=== PATIENT | male | born 1970 | race Caucasian/White ===

== ENCOUNTER 2019-04-29 14:32 | Emergency (ER) | payer SELFPAY ==
[~2019-04-29] VITALS: Ht 175.3 cm; Wt 74.8 kg
[~2019-04-29 14:32] MED LIST: ALBU8.5H2 IH; CALC3.7S2 NS; CYCL10TA9 PO; DICY10CA26 PO; FLUT1DIS26 IH; IBP600T1 PO; LD5PT TOP; LORA-407 PO; NF-ESOM40C PO; NS IV 500 ML 500 ML ONE; OXYC-309 PO; TPR100T PO
[2019-04-29] MEDS ORDERED: LIDOCAINE/EPI 1%-1:100,000 (XYLOCAINE) 20ML INJ STA (14:44)
[2019-04-29] MEDS ORDERED: TETANUS,DIPTH,PERTUSS P/F (BOOSTRIX) 0.5 ML VIAL IM ONE (14:45)
--- NOTE | 2019-04-29 14:50 | ED Lower Extremity ---
General Chief Complaint: Lower Extremity Stated Complaint: RT LEG INJ Source: patient History of Present Illness Date Seen by Provider: Apr 29, 2019 Time Seen by Provider: 14:46 Initial Comments Patient presents with an injury to his right lower leg/colin. Patient reports he was working with some hoggs . A 300 pound hog, hit a gate that came down against his lower leg. Patient suffered an approximate 12 cm laceration over his lower colin. He also reports that he is unable to bear weight and feels like he possibly could've broken it. He does also have a small laceration/abrasion some swelling to his right forearm. He is able to move his right forearm without any difficulty. Patient reports his last tetanus was greater than 3 years ago. He denies any other injuries at this time.. Onset: just prior to arrival Allergies and Home Medications Allergies Coded Allergies: No Known Drug Allergies (Unverified , 05/01/11) Home Medications Albuterol 8.5 Gm Hfa.aer.ad, 8.5 GM IH Q6H PRN, (Reported) 2 PUFFS Calcitonin 3.7 Ml [place].pump, 1 SPRAY NS DAILY, (Reported) Cephalexin 500 Mg Capsule, 500 MG PO Q6H Prescribed by: DENIA DASILVA on 04/29/19 1648 Cyclobenzaprine Hcl 10 Mg Tablet, 1 EACH PO TID, (Reported) Dicyclomine Hcl 10 Mg Capsule, 1 EACH PO QID, (Reported) Esomeprazole Mag Trihydrate 40 Mg Capsule.dr, 1 CAP PO DAILY, (Reported) Fluticasone/Salmeterol 1 Disk Inhp, 1 PUFF IH BID PRN, (Reported) 1 PUFF Ibuprofen 600 Mg Tab, 600 MG PO Q8HR PRN, (Reported) Lidocaine 1 Ea Patch, 1 EA TOP DAILY, (Reported) ON FOR 12 HRS OFF FOR 12 HRS Lorazepam 2 Mg Tablet, 1 TAB PO Q6, (Reported) Oxycodone Hcl/Acetaminophen 1 Each Tablet, 1 EACH PO Q4, (Reported) Topiramate 100 Mg Tablet, 1 TAB PO TID, (Reported) Patient Home Medication List Home Medication List Reviewed: Yes Review of Systems Constitutional: see HPI EENTM: no symptoms reported Respiratory: no symptoms reported Cardiovascular: no symptoms reported Gastrointestinal: no symptoms reported Skin: see HPI Psychiatric/Neurological: No Symptoms Reported Past Rtspaop-Fnybua-Ukqkky Hx Past Med/Social Hx: Reviewed Nursing Past Med/Soc Hx Physical Exam Vital Signs Vital Signs - First Documented 04/29/19 04/29/19 14:38 17:02 Temp 98.1 Pulse 98 Resp 20 B/P (MAP) 161/96 (117) Pulse Ox 94 O2 Delivery Room Air Capillary Refill : Height, Weight, BMI Height: '" Weight: lbs. oz. kg; BMI Method: General Appearance: WD/WN, no apparent distress HEENT: PERRL/EOMI, normal ENT inspection Neck: non-tender, full range of motion Cardiovascular: normal peripheral pulses, regular rate, rhythm Hips: bilateral hip non-tender Legs: right leg bone tenderness, right leg other (12 cm laceration to the anterior colin) Ankles: bilateral ankle non-tender Feet: bilateral foot non-tender Neurologic/Tendon: normal sensation, normal motor functions Neurologic/Psychiatric: day care aide II-XII nml as tested, no motor/sensory deficits Skin: other (12 cm laceration to the right anterior colin and a small laceration/abrasion to the right upper forearm) Procedures/Interventions Wound Location: Lower Extremities Wound Length (cm): 12.5 Wound's Depth, Shape: irregular, contused tissue, sub Q Wound Explored: no foreign body removed Irrigated w/ Saline (ccs): 1000 Anesthesia: Lidocaine w/ Epi Volume Anesthetic (ccs): 6 Suture: Plain, Vicryl Suture Size: 3-0 Number of Sutures: 7 Sterile Dressing Applied?: Yes Progress pt tolerated well Progress/Results/Core Measures Results/Orders My Orders Orders - DENIA DASILVA DO Ns Iv 500 Ml (Sodium Chloride 0.9%) (04/29/19 14:31) Forearm 2 View Right (04/29/19 14:44) Tibia Fibula 2 View Right (04/29/19 14:44) Dipht,Pertuss(Acell),Tet Adult (Boostrix (04/29/19 14:45) Lidocaine/Epi 1% 1:100,000 (Xylocaine /E (04/29/19 14:44) Ed Iv/Invasive Line Start (04/29/19 14:52) Fentanyl Injection (Sublimaze Injection (04/29/19 15:00) Cefazolin 2 Gm/50 Ml Ns (Ancef 2 Gm/50 M (04/29/19 15:45) Lidocaine/Epi 2% 1:100,000 (Xylocaine/Ep (04/29/19 15:42) Morphine Injection (Morphine Injection (04/29/19 15:45) Morphine Injection (Morphine Injection (04/29/19 15:53) Lidocaine/Epi Mpf 2% 1:200,000 (Xylocain (04/29/19 16:00) Cefazolin Injection (Ancef Injection) (04/29/19 15:57) Ns (Ivpb) (Sodium Chloride 0.9% Ivpb Bag (04/29/19 15:57) Crutches (04/29/19 16:28) Medications Given in ED Current Medications Medications Dose Ordered Sig/Karlene Route Start Time Stop Time Status Last Admin Dose Admin Cefazolin Sodium 50 ml @ 140 mls/hr ONCE ONCE IV 04/29/19 15:45 04/29/19 16:06 DC 04/29/19 16:17 140 MLS/HR Diphtheria/ Tetanus/Acell Pertussis 0.5 ml ONCE ONCE IM 04/29/19 14:45 04/29/19 14:46 DC 04/29/19 15:03 0.5 ML Fentanyl Citrate 50 mcg ONCE ONCE IVP 04/29/19 15:00 04/29/19 15:01 DC 04/29/19 15:04 50 MCG Lidocaine/ Epinephrine 10 ml ONCE ONCE INJ 04/29/19 16:00 04/29/19 16:01 DC 04/29/19 15:59 10 ML Vital Signs/I&O 04/29/19 04/29/19 14:38 17:02 Temp 98.1 Pulse 98 72 Resp 20 16 B/P (MAP) 161/96 (117) 142/79 (100) Pulse Ox 94 O2 Delivery Room Air Progress Progress Note : Progress Note Patient continues to state he is unable to bear weight. There was a small fracture versus vascular line in the area of where he was injured. I will splint him since he is a little bear weight. We will have him follow-up with or so in 7-10 days for repeat x-ray. Patient will be discharged home with Keflex. He is to have the stitches out in 10-14 days. He is discharged home in stable condition. Diagnostic Imaging Diagonstic Imaging: Xray Reviewed: Reviewed/Discussed Departure Impression Primary Impression: Laceration of right lower leg without foreign body Qualified Codes: S81.811A - Laceration without foreign body, right lower leg, initial encounter Additional Impression: Closed fibular fracture Qualified Codes: S82.424A - Nondisplaced transverse fracture of shaft of right fibula, initial encounter for closed fracture Disposition: HOME, SELF-CARE Condition: Stable Departure-Patient Inst. Referrals: PATRICIA CHOPRA MD (PCP/Family) Primary Care Physician Patient Instructions: Laceration Repair With Stitches (DC) Add. Discharge Instructions: Keep laceration clean with warm soapy water. Then a layer of Vaseline as needed over the wound. Follow-up with or through her primary care physician for repeat x-ray in 7-10 days to determine if fracture versus vascular channel with severe contusion. Follow-up with primary care physician or at the ER in 10-14 days for suture removal All discharge instructions reviewed with patient and/or family. Voiced understanding. Scripts Cephalexin (Keflex) 500 Mg Capsule 500 MG PO Q6H for 7 Days, #28 CAP Prov: DENIA DASILVA DO 04/29/19 DENIA DASILVA DO Apr 29, 2019 14:50
[2019-04-29] MEDS ORDERED: fentaNYL INJECTION 100 MCG/2 ML AMP IVP ONE (15:00)
[2019-04-29] MEDS ORDERED: LIDOCAINE/EPI 2% 1:100,00 (XYLOCAINE) 20 ML VIAL ONE (15:42)
[2019-04-29] MEDS ORDERED: morphine INJ 10 MG/ML 1ML (SYR OR VIAL) ONE (15:45)
[2019-04-29] MEDS ORDERED: ceFAZolin 2 GM/50 ML NS 50 ML IV ONE (15:45)
[2019-04-29] MEDS ORDERED: morphine INJ 10 MG/ML 1ML (SYR OR VIAL) IVP STA (15:53)
[2019-04-29] MEDS ORDERED: NS (IVPB) 50 ML ONE (15:57)
[2019-04-29] MEDS ORDERED: ceFAZolin INJECTION 2,000 MG ONE (15:57)
[2019-04-29] MEDS ORDERED: LIDOCAINE/EPI 2% 1:200,00 (XYLOCAINE) 10 ML VIAL INJ ONE (16:00)
--- NOTE | 2019-04-29 16:01 | Diagnostic Imaging Report ---
INDICATION: Right lower leg pain. FINDINGS: Two views of the right tibia and fibula show no fracture or dislocation. IMPRESSION: Negative right tibia and fibula. Dictated by: Dictated on workstation # [id number]
--- NOTE | 2019-04-29 16:02 | Diagnostic Imaging Report ---
INDICATION: Right forearm Pain. FINDINGS: AP and lateral views of the right forearm show no fracture or dislocation. IMPRESSION: Negative right forearm. Dictated by: Dictated on workstation # [id number]
[2019-04-29] MEDS ORDERED: CEPH-507 PO (16:48)
[2019-04-29 17:02] VITALS: BP 142/79
--- NOTE | 2019-04-29 17:09 | NUR ---
patient denies need for crutches. States he has crutches at home.
--- OUTSIDE RECORDS SUMMARY | 2019-04-29 17:39 | XMS REPORT ---
Author Author PATRICIA CHOPRA Organization [facility] Address [address] [place] [address] Care Team Providers Care It Systems Engineer Name Role Phone PATRICIA CHOPRA Unavailable PROBLEMS Type Condition ICD9-CM Code JYY52-RA Code Onset Dates Condition Status SNOMED Code Problem Reflux esophagitis K21.0 0 869725614 Problem Migraine headache G43.909 0 76806594 Problem Rotator cuff impingement syndrome M75.40 14 Jan, 2011 0 867828244 Problem Tobacco use Z72.0 Oct, 0 273825069 Problem Pes anserinus tendinitis M76.899 09 Mar, 2010 0 36929649 Problem Acute and chronic cholecystitis K81.2 Apr, 0 003421626 Problem Headache(784.0) R51 06 Jun, 2012 0 74651586 Problem Closed fracture of greater tuberosity of humerus S42.253A 15 Jun, 2011 0 103503874 Problem Abdominal pain, generalized R10.84 Apr, 0 229160515 Problem IBS (irritable bowel syndrome) K58.9 Mar, 0 90500807 Problem Chronic obstructive pulmonary disease, unspecified COPD type J44.9 Active 84727737 Problem RLS (restless legs syndrome) G25.81 Active 07762254 Problem Rotator cuff tendinitis M75.80 Jan, 0 298606154 Problem Essential hypertension I10 Active 57468533 Problem Shoulder dislocation S43.006A 15 Jun, 2011 0 256338531 Problem Epilepsy G40.909 0 87884203 Problem Other specific arthropathies, not elsewhere classified, left shoulder M12.812 Active 535852018 Problem Other specific arthropathies, not elsewhere classified, right shoulder M12.811 Active [id number] Problem Irritable bowel syndrome without diarrhea K58.9 Active 37988301 Problem Anxiety F41.9 Active 91047420 ALLERGIES No Information ENCOUNTERS Encounter Location Date Diagnosis [facility] [address] [place] [address], [place] [address] Mar, Anxiety F41.9 [place] [address] [address] Mar, Anxiety F41.9 [place] [address] [address] Mar, Other specific arthropathies, not elsewhere classified, left shoulder M12.812 [facility] [address] [place] [address] Mar, Seizure R56.9 [facility] [address] [address] Mar, [facility] [address] [place] [address] Mar, Rotator cuff impingement syndrome M75.40 ; Chronic obstructive pulmonary disease, unspecified COPD type J44.9 ; Tobacco use Z72.0 ; Epilepsy G40.909 ; Essential hypertension I10 and RLS (restless legs syndrome) G25.81 [facility] [address] [address] February, Anxiety F41.9 [facility] [address] [place] [address] February, Other specific arthropathies, not elsewhere classified, left shoulder M12.812 [facility] [address] [place] [address] February, Anxiety F41.9 [facility] [address] [address] Jan, Anxiety F41.9 [facility] [address] [address] Jan, Other specific arthropathies, not elsewhere classified, left shoulder M12.812 and Chronic obstructive pulmonary disease, unspecified COPD type J44.9 [facility] [address] [place] [address] Jan, Anxiety F41.9 [facility] [address] [address] Jan, Anxiety F41.9 [facility] [address] [address] Dec, Seizure R56.[address] [address] Dec, Other specific arthropathies, not elsewhere classified, left shoulder M12.812 [facility] [place] [address] [address] Dec, [address] [address] Dec, Other specific arthropathies, not elsewhere classified, left shoulder M12.[address] [address] Dec, [facility] [address] [facility] [place] [address] Dec, Chronic obstructive pulmonary disease, unspecified COPD type J44.[address] [address] Dec, Chronic obstructive pulmonary disease, unspecified COPD type J44.9 ; Dislocation of right shoulder joint, subsequent encounter S43.004D ; Other specific arthropathies, not elsewhere classified, right shoulder M12.811 ; Other specific arthropathies, not elsewhere classified, left shoulder M12.812 ; Anxiety F41.9 ; Irritable bowel syndrome without diarrhea K58.9 and Seizure R56.9 [facility] [place] [address] [address] Nov, [facility] [address] [address] Nov, [facility] [address] [address] Sep, [facility] [id number] [place] [address] Sep, [facility] [address] [address] Apr, [facility] [id number] [place] [address] Jun, [facility] [address] [facility] [id number] [place] [id number] Jul, Dental examination Z01.20 and Dental caries K02.9 [facility] [address] [facility] [id number] [place] [id number] February, Dental examination V72.2 [facility] [address] [facility] [id number] [address] Apr, IMMUNIZATIONS No Known Immunizations SOCIAL HISTORY Never Assessed REASON FOR VISIT medication refill PLAN OF CARE VITAL SIGNS MEDICATIONS Medication Instructions Dosage Frequency Start Date End Date Duration Status Ondansetron 8 MG Orally 3 times a day 1 tablet 8h Dec, 14 days Active RESULTS No Results PROCEDURES No Known procedures INSTRUCTIONS MEDICATIONS ADMINISTERED No Known Medications MEDICAL (GENERAL) HISTORY Type Description Date Medical History Bronchitis Medical History Seizures Medical History Surgery requiring rods pins and screws Medical History Back trouble Surgical History Appendectomy Surgical History Lap Nayana Surgical History Kyphoplasty Surgical History Left Shoulder fracture Hospitalization History Bilateral Shoulder dislocation and fracture
--- OUTSIDE RECORDS SUMMARY | 2019-04-29 17:39 | XMS REPORT ---
Author Author ALETHA ARRINGTON Organization [employer] Address Unknown Phone Unavailable Care Team Providers Care Manager Product Support Name Role Phone ALETHA ARRINGTON CP Unavailable Allergies, Adverse Reactions, Alerts Substance Reaction Event Type N.K.D.A. Info Not Available Non Drug Allergy Problems Problem Type Condition Code Onset Dates Condition Status Assessment Dental examination Z01.20 Active Medications Medication Code System Code Instructions Start Date End Date Status Dosage Levsin [facility] [address]-56 not defined Advair Diskus [facility] [address]-32 not defined Flexeril NDC 0 not defined Topamax [facility] [address]-07 not defined ProAir HFA [facility] [address]-09 not defined morphine NDC 0 not defined Procedures Procedure Coding System Code Date INTRAORL-PERIAPICAL 1 FILM 18630 CPT-4 D0220 Jul 21, 2015 BITEWING - SINGLE FILM CPT-4 D0270 Jul 21, 2015 LTD ORAL EVALUATION - PROBLEM FOCUS CPT-4 D0140 Jul 21, 2015 EXTRAC ERUPTED TOOTH/EXPOSED ROOT CPT-4 D7140 Jul 21, 2015 EXTRAC ERUPTED TOOTH/EXPOSED ROOT CPT-4 D7140 Jul 21, 2015 Vital Signs Date/Time: Jul 21, 2015 Blood Pressure Diastolic 87 mmHg Blood Pressure Systolic 144 mmHg Results No Known Results Summary Purpose [employer] Submission
--- OUTSIDE RECORDS SUMMARY | 2019-04-29 17:39 | XMS REPORT ---
Author Author PATRICIA CHOPRA Organization [facility] Address [address] [place] [address] Care Team Providers Care Hotel Front Desk Clerk Name Role Phone PATRICIA CHOPRA Unavailable PROBLEMS Type Condition ICD9-CM Code SYN70-XX Code Onset Dates Condition Status SNOMED Code Problem Migraine headache 346.90 0 31920697 Problem Epilepsy 345.90 0 16750330 Problem Tobacco use 305.1 Oct, 0 740876473 Problem Anxiety 300.00 Mar, 0 70153392 Problem IBS (irritable bowel syndrome) 564.1 Mar, 0 81832958 Problem Abdominal pain, generalized 789.07 Apr, 0 460363869 Problem Closed fracture of greater tuberosity of humerus 812.03 15 Jun, 2011 0 636975450 Problem Shoulder dislocation S43.006A 15 Jun, 2011 0 603146155 Problem Headache(784.0) R51 06 Jun, 2012 0 13606067 Problem Rotator cuff impingement syndrome 726.10 Jan, 0 625011828 Problem Shoulder dislocation 831.00 15 Jun, 2011 0 479352165 Problem Migraine headache G43.909 0 04833937 Problem Epilepsy G40.909 0 61242226 Problem Rotator cuff impingement syndrome M75.40 Jan, 0 820395492 Problem Reflux esophagitis K21.0 0 942106707 Problem Pes anserinus tendinitis 726.61 09 Mar, 2010 0 05784671 Problem Acute and chronic cholecystitis K81.2 Apr, 0 205176670 Problem Closed fracture of greater tuberosity of humerus S42.253A 15 Jun, 2011 0 706773678 Problem Pes anserinus tendinitis M76.899 09 Mar, 2010 0 15840378 Problem Rotator cuff tendinitis 726.10 14 Jan, 2011 0 236184117 Problem Rotator cuff tendinitis M75.80 Jan, 0 813055109 Problem Abdominal pain, generalized R10.84 Apr, 0 451047130 Problem Other specific arthropathies, not elsewhere classified, right shoulder M12.811 Active 68039855201361944 Problem Reflux esophagitis 530.11 0 751485519 Problem Irritable bowel syndrome without diarrhea K58.9 Active 66137248 Problem Acute and chronic cholecystitis 575.12 Apr, 0 551707374 Problem Tobacco use Z72.0 Oct, 0 276354406 Problem IBS (irritable bowel syndrome) K58.9 Mar, 0 44343695 Problem Chronic obstructive pulmonary disease, unspecified COPD type J44.9 Active 09676712 Problem Anxiety F41.9 Active 72620240 Problem Other specific arthropathies, not elsewhere classified, left shoulder M12.812 Active 520927201 ALLERGIES No Known Allergies ENCOUNTERS Encounter Location Date Diagnosis [address] [address] Mar, [facility] [address] [place] [address] Jan, Anxiety F41.[address] [address] Jan, Anxiety F41.[address] [address] Dec, Seizure R56.[address] [address] Dec, Other specific arthropathies, not elsewhere classified, left shoulder M12.[address] [address] Dec, [address] [address] Dec, Other specific arthropathies, not elsewhere classified, left shoulder M12.[address] [address] Dec, [facility] [address] [place] [address] Dec, Chronic obstructive pulmonary disease, unspecified COPD type J44.[address] [address] Dec, Chronic obstructive pulmonary disease, unspecified COPD type J44.9 ; Dislocation of right shoulder joint, subsequent encounter S43.004D ; Other specific arthropathies, not elsewhere classified, right shoulder M12.811 ; Other specific arthropathies, not elsewhere classified, left shoulder M12.812 ; Anxiety F41.9 ; Irritable bowel syndrome without diarrhea K58.9 and Seizure R56.9 [facility] [address] [place] [address] Nov, [facility] [id number] [place] [address] Nov, [facility] [id number] [place] [address] Sep, [facility] [id number] [place] [address] Sep, [facility] [id number] [place] [address] Apr, [facility] [id number] [place] [address] Jun, [facility] [id number] [place] [id number] Jul, Dental examination Z01.20 and Dental caries K02.9 [facility] [id number] [place] [id number] February, Dental examination V72.2 [facility] [id number] [place] [address] Apr, IMMUNIZATIONS No Known Immunizations SOCIAL HISTORY Never Assessed REASON FOR VISIT Blood Pressure PLAN OF CARE Activity Details Follow Up 3 Months,prn Reason: VITAL SIGNS Height 5ft 9in in 2018-12-17 Weight 172lb lbs 2018-12-17 BMI 25.4 kg/m2 2018-12-17 Blood pressure systolic 116 mmHg 2018-12-17 Blood pressure diastolic 80 mmHg 2018-12-17 MEDICATIONS Medication Instructions Dosage Frequency Start Date End Date Duration Status Morphine Sulfate ER 60 MG Orally 2 times a day 1 capsule 12h 25 Feb, 2019 Active Xanax 0.25 MG Orally Twice a day 1 tablet 12h Dec, 28 days Active Advair Diskus 250-50 MCG/DOSE by inhalation route 2 times a day 1 puff 12h Active Lisinopril 5 MG Orally Once a day 1 tablet 24h 18 Nov, 2018 Active ProAir HFA Active Levsin Active Flexeril Active Topamax 100 MG by oral route 3 times a day 1 tablet 8h Active RESULTS No Results PROCEDURES No Known [...]
--- OUTSIDE RECORDS SUMMARY | 2019-04-29 17:39 | XMS REPORT | Continuity of Care Document ---
Author Organization Unknown Address Unknown Allergies There is no data. Medications There is no data. Problems There is no data. Procedures There is no data. Results Test Result Range CMP - 03/17/19 09:01 GLUCOSE 84 mg/dL 65-99 UREA NITROGEN (BUN) 13 mg/dL 7-25 CREATININE 0.98 mg/dL 0.70-1.33 eGFR NON-AFR. [place] 90 mL/min/1.73m2 > OR=60 eGFR 104 mL/min/1.73m2 > OR=60 BUN/CREATININE RATIO NOT APPLICABLE (calc) 6-22 SODIUM 137 mmol/L 135-146 POTASSIUM 4.2 mmol/L 3.5-5.3 CHLORIDE 104 mmol/L 98-110 CARBON DIOXIDE 25 mmol/L 20-32 CALCIUM 9.1 mg/dL 8.6-10.3 PROTEIN, TOTAL 6.6 g/dL 6.1-8.1 ALBUMIN 4.0 g/dL 3.6-5.1 GLOBULIN 2.6 g/dL (calc) 1.9-3.7 ALBUMIN/GLOBULIN RATIO 1.5 (calc) 1.0-2.5 BILIRUBIN, TOTAL 0.5 mg/dL 0.2-1.2 ALKALINE PHOSPHATASE 70 U/L 40-115 AST 13 U/L 10-35 ALT 11 U/L 9-46 Encounters ACCT No. Visit Date/Time Discharge Status Pt. Type Provider Facility Loc./Unit Complaint [id number] 03/17/2019 08:45:00 03/17/2019 23:59:59 CLS Outpatient PATRICIA CHOPRA [facility] [id number] 03/17/2019 08:45:00 Document Registration
== END 2019-04-29 17:10 | disposition home or self-care (01) ==
LOC: EDUNIT# 14:32 → ER FS 14:34
DX: S82.424A Nondisplaced transverse fracture of shaft of right fibula, initial encounter for closed fracture (principal); S81.811A Laceration without foreign body, right lower leg, initial encounter; Z79.51 Long term (current) use of inhaled steroids; W22.8XXA Striking against or struck by other objects, initial encounter
CPT/HCPCS: 29515; 73090; 73590; 90471; 90715; 96365; 96375

== ENCOUNTER 2019-05-10 13:53 | Emergency (ER) | payer SELFPAY ==
[~2019-05-10] VITALS: Ht 175.3 cm; Wt 74.8 kg
[~2019-05-10 13:53] MED LIST changes: +CEPH-507 PO; -NS IV 500 ML 500 ML ONE
--- OUTSIDE RECORDS SUMMARY | 2019-05-10 13:59 | XMS REPORT | Continuity of Care Document ---
Author Organization Unknown Address Unknown Phone Unavailable Allergies There is no data. Medications There is no data. Problems There is no data. Procedures There is no data. Results Test Result Range CMP - 03/17/19 09:01 GLUCOSE 84 mg/dL 65-99 UREA NITROGEN (BUN) 13 mg/dL 7-25 CREATININE 0.98 mg/dL 0.70-1.33 eGFR NON-AFR. [place] 90 mL/min/1.73m2 > OR=60 eGFR 104 mL/min/1.73m2 [...] Status Pt. Type Provider Facility Loc./Unit Complaint [id number] 05/05/2019 17:20:00 05/05/2019 23:59:59 [facility] Outpatient PATRICIA CHOPRA [facility] [id number] 03/17/2019 08:45:00 Document Registration
--- NOTE | 2019-05-10 14:15 | ED Suture Removal/Wound Check ---
Suture/Wound Re-check Suture Removal/Wound Recheck : Suture Removal/Wound Recheck: Sutures removed by RN General Appearance: no apparent distress Neuro/Tendon: tendon function deficit Skin Exam: other Comments RN requested that I assess the wound. Sutures in 10 day. Wet eschar apparent with still evidence of cellulitis. Difficulty dorsiflexion of toes, uncertain if due to pain, edema, neuropraxia of physical damage. Keflex okay for uncomplication skin infection, but this should have broader spectrum antibiotics due to severity of injury and contamination. Denies MRSA history. Suture need to be removed. Warned him of some dehiscense. This should be followed in clinic. Healing by secondary intention likely. Physical Exam Vital Signs Vital Signs - First Documented 05/10/19 05/10/19 14:02 14:33 Temp 97.3 Pulse 97 Resp 20 B/P (MAP) 138/80 Pulse Ox 96 Capillary Refill : General Appearance: no apparent distress Skin Problem Location: lower extremities Skin Problem Character: erythema, tenderness Departure Impression Primary Impression: Cellulitis Disposition: 01 HOME, SELF-CARE Condition: Stable Departure-Patient Inst. Referrals: PATRICIA CHOPRA MD (PCP/Family) Primary Care Physician Patient Instructions: SUTURE REMOVAL - UNCOMPLICATED, STAPLE REMOVAL - UNCOMPLICATED Scripts Clindamycin HCl (Clindamycin HCl) 300 Mg Capsule 300 MG PO TID for 10 Days, #30 CAP 0 Refills Prov: JANIYA LEMON MD 05/10/19 JANIYA LEMON MD May 10, 2019 14:15
[2019-05-10] MEDS ORDERED: CLIN300C11 PO ×2 (14:18→14:22)
[2019-05-10 14:33] VITALS: BP 138/80
== END 2019-05-10 14:34 | disposition home or self-care (01) ==
LOC: EDUNIT# 13:53 → ER FS 13:55
DX: S81.811D Laceration without foreign body, right lower leg, subsequent encounter (principal); L03.115 Cellulitis of right lower limb; X58.XXXD Exposure to other specified factors, subsequent encounter